=== PATIENT | male | born 1985 | race Caucasian/White ===

== ENCOUNTER 2019-06-22 15:47 | Emergency (ER) | payer SELFPAY ==
[~2019-06-22] VITALS: Ht 182.9 cm; Wt 91.9 kg
[~2019-06-22 15:47] MED LIST: CYCL-394 PO; HYDR1TAB PO; IBUP-812 PO; NO HOME MEDS
[2019-06-22 15:50] VITALS: BP 124/87
[2019-06-22] MEDS ORDERED: PENI500T2 PO (16:32)
== END 2019-06-22 16:41 | disposition home or self-care (01) ==
LOC: ER 15:48
DX: K04.7 Periapical abscess without sinus (principal); K02.9 Dental caries, unspecified; K03.81 Cracked tooth; F12.90 Cannabis use, unspecified, uncomplicated; Z90.49 Acquired absence of other specified parts of digestive tract; Z79.899 Other long term (current) drug therapy
CPT/HCPCS: 99283